=== PATIENT | female | born 1995 | race Caucasian/White ===

== ENCOUNTER 2017-02-20 19:05 | Emergency (ER) | payer BC ==
[~2017-02-20] VITALS: Ht 162.6 cm; Wt 56.7 kg
[2017-02-20 19:21] VITALS: BP 126/82
== END 2017-02-20 21:57 | disposition home or self-care (01) ==
LOC: ER 19:06
DX: M54.2 Cervicalgia (principal); M54.6 Pain in thoracic spine; R50.9 Fever, unspecified
CPT/HCPCS: 72040; 72070; 99284; A4606; Z7610

== ENCOUNTER 2017-05-25 23:56 | Emergency (ER) | payer BC ==
[~2017-05-25] VITALS: Ht 160 cm; Wt 56.7 kg
[2017-05-26] VITALS: BP 99/69
== END 2017-05-26 02:08 | disposition home or self-care (01) ==
LOC: ER 23:57
DX: J02.9 Acute pharyngitis, unspecified (principal)
CPT/HCPCS: 36415; 86308; 87070; 87880; 99284; A4606; 86403-TC; Z7610

== ENCOUNTER 2017-05-31 10:57 | Emergency (ER) | payer BC ==
[~2017-05-31] VITALS: Ht 160 cm; Wt 56.7 kg
--- NOTE | 2017-05-31 11:24 | NUR ---
URINE OBTAINED SENT TO LAB
[2017-05-31] MEDS ORDERED: IV NS 0.9% 1,000 ML BAG IV ONE (11:30)
[2017-05-31] MEDS ORDERED: KETOROLAC TROMETHAMINE INJ 30 MG/ML VIAL IV ONE (11:30)
[2017-05-31] MEDS ORDERED: IV NS 0.9% 1,000 ML ONE (11:38)
[2017-05-31] MEDS ORDERED: KETOROLAC TROMETHAMINE INJ 30 MG/ML VIAL ONE (11:38)
[2017-05-31 11:59] LABS: BASOPHILS % (AUTO) 0.4 % (0.0-2.0); EOSINOPHILS # (AUTO) 0.1 /CMM (0.0-0.7); EOSINOPHILS % (AUTO) 1.8 % (0.0-6.0); HEMATOCRIT 40 % (33-45); HEMOGLOBIN 13.3 g/dL (11.5-14.8); LYMPHOCYTES # (AUTO) 1.7 /CMM (0.8-4.8); LYMPHOCYTES % (AUTO) 24.1 % (20.0-44.0); MEAN CORPUSCULAR HEMOGLOBIN 28 PG (26.0-33.0); MEAN CORPUSCULAR HGB CONC 34 g/dl (31.0-36.0); MEAN CORPUSCULAR VOLUME 83 fL (82-100); MONOCYTES # (AUTO) 0.5 /CMM (0.1-1.30); MONOCYTES % (AUTO) 6.9 % (2.0-12.0); NEUTROPHILS # (AUTO) 4.6 /CMM (1.8-8.9); NEUTROPHILS % (AUTO) 66.8 % (43.0-81.0); PLATELET COUNT (AUTO) 330 /CMM (150-450); RED BLOOD CELL COUNT(AUTO) 4.79 MIL/uL (4.0-5.2); WHITE BLOOD COUNT (AUTO) 6.9 K/uL (4.3-11.0)
[2017-05-31 12:01] LABS: APPEARANCE,URINE CLOUDY (CLEAR); BILIRUBIN,URINE 1+ (NEGATIVE); BLOOD, URINE 3+ Ery/uL (NEGATIVE); COLOR,URINE YELLOW (YELLOW); KETONES,URINE NEGATIVE (NEGATIVE); LEUKOCYTE ESTERASE ,URINE NEGATIVE (NEGATIVE); NITRITE, URINE NEGATIVE (NEGATIVE); PH,URINE 5.5 (5.0-8.0); PROTEIN,URINE NEGATIVE (NEGATIVE); UGLUCOSE NEGATIVE (NEGATIVE); UROBILINOGEN,URINE 0.2 EU/dL (0.2)
[2017-05-31 12:21] LABS: CALCIUM, SERUM 9.1 mg/dL (8.5-10.1); CREATININE 0.9 mg/dL (0.6-1.3); POTASSIUM 3.8 mmol/L (3.5-5.1)
[2017-05-31 12:26] LABS: ALBUMIN 4.2 g/dL (3.4-5.0); BILIRUBIN,DIRECT 0.1 mg/dL (0.0-0.2); BILIRUBIN,TOTAL 0.4 mg/dL (0.2-1.0)
[2017-05-31 12:30] LABS: BACTERIA,URINE Few /HPF (None Seen); MUCUS,URINE Few /LPF (None Seen); RBC,URINE 21-50 /HPF (0-2); SQUAMOUS EPITHELIAL CELL,UR Moderate /HPF (None Seen); WBC,URINE 0-2 /HPF (0-3)
[2017-05-31 12:49] LABS: PREGNANCY TEST URINE QUAL NEGATIVE (NEGATIVE)
[2017-05-31 14:49] VITALS: BP 111/68
== END 2017-05-31 14:51 | disposition home or self-care (01) ==
LOC: ER 10:58
DX: R10.9 Unspecified abdominal pain (principal); N92.0 Excessive and frequent menstruation with regular cycle; N94.6 Dysmenorrhea, unspecified
CPT/HCPCS: 36415; 71010; 76856; 80048; 80076; 81001; 83690; 84703; 85025; 96361; 96374; 99285; A4606; J1885; J7030; 81000-TC; Z7610

== ENCOUNTER 2018-01-25 23:29 | Emergency (ER) | payer BC ==
[~2018-01-25] VITALS: Ht 160 cm; Wt 56.7 kg
--- NOTE | 2018-01-26 | NUR ---
C/O CHEST PAIN SINCE 05/29 NONRADIATING AFTER EATING [employer] FOOD AND A "RAY". NO SOB NOTED. A/OX4 WITH ST ON MONITOR. WILL CONTINUE TO MONITOR FOR ANY CHANGES.
[2018-01-26] MEDS ORDERED: ASPIRIN 81 MG TAB.CHEW ONE (00:17)
--- NOTE | 2018-01-26 00:25 | NUR ---
CXR AT BEDSIDE
--- NOTE | 2018-01-26 00:27 | NUR ---
Jose severino in ED - 01/26/18 at 0028 by CBATADARRYL IV STARTED LAC IV#18. BLOOD DRAWN AND SENT TO LAB.
--- NOTE | 2018-01-26 00:28 | NUR ---
Jose seevrino in [facility] - 01/26/18 at 00[address] PT [address] VIA [facility].
[2018-01-26] MEDS ORDERED: ASPIRIN 81 MG TAB.CHEW PO ONE (00:30)
--- NOTE | 2018-01-26 00:32 | NUR ---
EKG AT BEDSIDE
[2018-01-26 00:57] LABS: BASOPHILS % (AUTO) 0.3 % (0.0-2.0); EOSINOPHILS # (AUTO) 0.2 /CMM (0.0-0.7); EOSINOPHILS % (AUTO) 2.4 % (0.0-6.0); HEMATOCRIT 38 % (33-45); HEMOGLOBIN 12.9 g/dL (11.5-14.8); LYMPHOCYTES % (AUTO) 25.9 % (20.0-44.0); MEAN CORPUSCULAR HEMOGLOBIN 28 PG (26.0-33.0); MEAN CORPUSCULAR HGB CONC 34 g/dl (31.0-36.0); MEAN CORPUSCULAR VOLUME 82 fL (82-100); MONOCYTES # (AUTO) 0.6 /CMM (0.1-1.30); MONOCYTES % (AUTO) 7.6 % (2.0-12.0); NEUTROPHILS % (AUTO) 63.8 % (43.0-81.0); PLATELET COUNT (AUTO) 281 /CMM (150-450); RDW COEFFICIENT OF VARIATION 13.1 (11.5-15.0); RED BLOOD CELL COUNT(AUTO) 4.59 MIL/uL (4.0-5.2); WHITE BLOOD COUNT (AUTO) 7.8 K/uL (4.3-11.0)
[2018-01-26 01:07] LABS: CALCIUM, SERUM 9.3 mg/dL (8.5-10.1); CARBON DIOXIDE 23 mmol/L (21-32); CHLORIDE 106 mmol/L (98-107); CREATININE 0.7 mg/dL (0.6-1.3); GLUCOSE 122 mg/dL (74-106); POTASSIUM 3.8 mmol/L (3.5-5.1); SODIUM SERUM 140 mmol/L (136-145); UREA NITROGEN, BLOOD 13 mg/dL (7-18)
[2018-01-26 01:09] LABS: TROPONIN I < 0.017 ng/mL (0.00-0.056)
[2018-01-26 01:19] LABS: ALANINE AMINOTRANSFERASE 18 U/L (12-78); ALKALINE PHOSPHATASE 47 U/L (46-116); ASPARTATE AMINOTRANSFERASE 10 U/L (15-37); B-TYPE NATRIURETIC PEPTIDE 30 PG/ML (0-125); BILIRUBIN,DIRECT 0.1 mg/dL (0.0-0.2); BILIRUBIN,TOTAL 0.2 mg/dL (0.2-1.0)
[2018-01-26] MEDS ORDERED: IV NS 0.9% 1,000 ML BAG IV ONE (01:30)
[2018-01-26 04:29] VITALS: BP 95/58
== END 2018-01-26 04:30 | disposition home or self-care (01) ==
LOC: ER 23:32
DX: R07.9 Chest pain, unspecified (principal)
CPT/HCPCS: 36415; 71045; 80048; 80076; 83880; 84484 ×2; 85025; 93005; 96360; 99285; A4606; J7030; Z7610

== ENCOUNTER 2019-10-19 15:53 | Emergency (ER) | payer BC ==
[~2019-10-19] VITALS: Ht 160 cm; Wt 52.2 kg
--- NOTE | 2019-10-19 15:58 | NUR ---
PT BIB MOM C/O ON AND OFF ABDOMINAL PAIN, BLOATING X 1 YEAR. WEIGHT LOSS X 2 MONTHS, PT IS AAOX4, NOT IN RESPIRATORY DISTRESS, HOOKED TO MONITOR, KEPT RESTED AND COMFORTABLE, WILL CONTINUE TO MONITOR.
--- NOTE | 2019-10-19 16:08 | NUR ---
SEEN AND EXAMINED BY DR. MAN.
--- NOTE | 2019-10-19 16:15 | NUR ---
IV LINE ESTABLISHED, BLOOD DRAWN AND SENT TO LAB.
--- NOTE | 2019-10-19 16:19 | NUR ---
URINE SPECIMEN COLLECTED AND SENT TO LAB.
[2019-10-19 16:22] LABS: BASOPHILS # (AUTO) 0.1 /CMM (0.0-0.2); BASOPHILS % (AUTO) 0.9 % (0.0-2.0); EOSINOPHILS % (AUTO) 1.1 % (0.0-6.0); HEMATOCRIT 44 % (33-45); HEMOGLOBIN 14.5 g/dL (11.5-14.8); LYMPHOCYTES # (AUTO) 1.6 /CMM (0.8-4.8); LYMPHOCYTES % (AUTO) 21.8 % (20.0-44.0); MEAN CORPUSCULAR HGB CONC 33 g/dl (31.0-36.0); MEAN CORPUSCULAR VOLUME 85 fL (82-100); MONOCYTES # (AUTO) 0.6 /CMM (0.1-1.30); MONOCYTES % (AUTO) 7.8 % (2.0-12.0); NEUTROPHILS # (AUTO) 4.9 /CMM (1.8-8.9); NEUTROPHILS % (AUTO) 68.4 % (43.0-81.0); PLATELET COUNT (AUTO) 329 /CMM (150-450); RED BLOOD CELL COUNT(AUTO) 5.21 MIL/uL (4.0-5.2); WHITE BLOOD COUNT (AUTO) 7.2 K/uL (4.3-11.0)
[2019-10-19 16:23] LABS: APPEARANCE,URINE Clear (CLEAR); BILIRUBIN,URINE Negative (NEGATIVE); BLOOD, URINE Negative Ery/uL (NEGATIVE); COLOR,URINE Yellow (YELLOW); KETONES,URINE Trace (NEGATIVE); LEUKOCYTE ESTERASE ,URINE Negative (NEGATIVE); NITRITE, URINE Negative (NEGATIVE); PROTEIN,URINE Negative (NEGATIVE); UGLUCOSE Negative (NEGATIVE)
[2019-10-19] MEDS ORDERED: ONDANSETRON HCL/PF 4 MG/2 ML VIAL ONE (16:23)
[2019-10-19 16:28] LABS: CALCIUM, SERUM 9.5 mg/dL (8.5-10.1); CREATININE 0.8 mg/dL (0.6-1.3); POTASSIUM 3.3 mmol/L (3.5-5.1)
[2019-10-19] MEDS ORDERED: IV NS 0.9% 1,000 ML BAG IV ONE (16:30)
[2019-10-19] MEDS ORDERED: ONDANSETRON HCL/PF 4 MG/2 ML VIAL IVP ONE (16:30)
[2019-10-19 16:34] LABS: ALBUMIN 4.5 g/dL (3.4-5.0); BILIRUBIN,DIRECT 0.1 mg/dL (0.0-0.2); BILIRUBIN,TOTAL 0.5 mg/dL (0.2-1.0); TOTAL PROTEIN, SERUM 8.2 g/dL (6.4-8.2)
[2019-10-19 16:38] LABS: BACTERIA,URINE Moderate /HPF (None Seen); RBC,URINE 0-2 /HPF (0-2); SQUAMOUS EPITHELIAL CELL,UR Many /HPF (None Seen); WBC,URINE 0-2 /HPF (0-3)
[2019-10-19 17:29] VITALS: BP 109/66
--- NOTE | 2019-10-19 17:29 | NUR ---
IV removed. Catheter intact and site benign. Pressure and 4x4 applied to site. No bleeding noted. Patient discharged to home in stable condition. Written and verbal after care instructions given. Patient verbalizes understanding of instruction.
== END 2019-10-19 17:32 | disposition home or self-care (01) ==
LOC: ER 15:55
DX: R11.0 Nausea (principal); Z98.890 Other specified postprocedural states
CPT/HCPCS: 36415; 80048; 80076; 81001; 83690; 84703; 85025; 87086; 99283; J7030; 81000-TC; J2405